=== PATIENT | female | born 1935 | race Caucasian/White ===

== ENCOUNTER 2017-02-08 16:13 | Inpatient (IN) | payer MEDICARE ==
[~2017-02-08] VITALS: Ht 152.4 cm; Wt 100.5 kg
[2017-02-08 18:10] LABS: BASO % 0.4 % (0.0-1.0); CALCIUM LEVEL 9.7 MG/DL (8.8-10.2); CREATININE FOR GFR 0.99 MG/DL (0.55-1.02); EOS # 0.2 K/mm3 (0.0-0.50); EOS % 2.4 % (0.0-3.0); LARGE UNSTAINED CELL # 0.2 K/mm3 (0.0-0.4); LARGE UNSTAINED CELL % 2.2 % (0.0-4.0); LYMPH # 1.6 K/mm3 (1.5-4.5); LYMPH % 16.1 % (24.0-44.0); MEAN CORPUSCULAR HEMOGLOBIN 22.4 pg (27.0-33.0); MEAN CORPUSCULAR HGB CONC 29.3 g/dl (32.0-36.5); MEAN CORPUSCULAR VOLUME 76.3 fl (80.0-96.0); MONO # 0.6 K/mm3 (0.0-0.8); MONO % 6.7 % (0.0-5.0); NEUTROPHILS # 6.5 K/mm3 (1.8-7.7); NEUTROPHILS % 72.2 % (36.0-66.0); PLATELET COUNT, AUTOMATED 323 k/mm3 (150-450); POTASSIUM SERUM 4.1 MEQ/L (3.5-5.1); RED CELL DISTRIBUTION WIDTH 17.2 % (11.5-14.5)
[2017-02-08 18:11] LABS: ADD MORPHOLOGY? YES
[2017-02-08] MEDS ORDERED: FUROSEMIDE 40 MG/4 ML VIAL (J1940) IV ONE (18:45)
--- NOTE | 2017-02-08 18:46 | REP ---
CHEST, TWO VIEWS: Two views of the chest are performed and compared to prior study of 05/08/2015. There is no acute infiltrate or pulmonary edema. There is cardiomegaly. There appears to be a hiatal hernia. There is tortuosity of the thoracic aorta. Mediastinal silhouette is unchanged. There are mild degenerative changes of the spine. IMPRESSION: Cardiomegaly. No evidence of acute pulmonary disease. Signed by Ronn Childs MD 02/08/2017 08:24 P
[2017-02-08 18:53] LABS: RETIC HEMOGLOBIN CONTENT CHr 26.9 PG (24-36); RETICULOCYTE ABSOLUTE ADVIA212 97 x10(9)/L (17-77)
[2017-02-08 18:55] LABS: ANISOCYTOSIS 1+
[2017-02-08 18:56] LABS: HYPOCHROMASIA 2+; MICROCYTOSIS 1+; OVALOCYTES 1+; POLYCHROMASIA 1+
[2017-02-08 18:58] LABS: PERCENT SATURATION 4.3 % (13.2-37.4)
[2017-02-08] MEDS ORDERED: TYLE325C PO (19:39)
[2017-02-08] MEDS ORDERED: FERR325T3 PO (19:39)
[2017-02-08] MEDS ORDERED: OMEP20CA3 PO (19:39)
[2017-02-08] MEDS ORDERED: VITA500C24 PO (19:39)
[2017-02-08] MEDS ORDERED: LASI40TA PO (19:39)
[2017-02-08] MEDS ORDERED: POTA20TA PO (19:39)
[2017-02-08] MEDS ORDERED: TRAM50TA2 PO (19:39)
[2017-02-08] MEDS ORDERED: VERA240C PO (19:46)
[2017-02-08] MEDS ORDERED: MONT10TA2 PO (19:46)
[2017-02-08] MEDS ORDERED: LOSA100T36 PO (19:46)
[2017-02-08] MEDS ORDERED: SIMV40TA2 PO (19:46)
[2017-02-08] MEDS ORDERED: PRED20TA PO (19:46)
[2017-02-08] MEDS ORDERED: SENN8.6T10 PO (19:46)
[2017-02-08] MEDS ORDERED: CALCTAB41 PO (19:51)
[2017-02-08] MEDS ORDERED: ALBU83IN INH (19:51)
[2017-02-08] MEDS ORDERED: SPIR1CAP INH (19:51)
[2017-02-08] MEDS ORDERED: SPIR25TA2 PO (19:51)
[2017-02-08] MEDS ORDERED: PAXI20TA3 PO (19:51)
[2017-02-08] MEDS ORDERED: DULE200A IN (19:51)
[2017-02-08] MEDS ORDERED: MULT1TAB18 PO (19:51)
[2017-02-08] MEDS ORDERED: XARE20TA PO (19:51)
[2017-02-08] MEDS ORDERED: PROA1AER INH (19:51)
[2017-02-08] MEDS ORDERED: ACETAMINOPHEN TAB 650MG DOSE (2X325MG) PO PRN (20:30)
[2017-02-08] MEDS ORDERED: VITMTA PO (20:32)
[2017-02-08] MEDS ORDERED: TYLE500T78 PO (20:32)
[2017-02-08] MEDS ORDERED: traMADol 50 MG TAB PO PRN (20:45)
[2017-02-08] MEDS ORDERED: ALBUTEROL SULFATE 2.5 MG/0.5 ML INH NEB SOLN INH PRN (20:45)
[2017-02-08 21:50] VITALS: BP 118/63
[2017-02-08] MEDS: OMEPRAZOLE 20 MG CAP PO SCH (21:57)
[2017-02-08] MEDS: VERAPAMIL 120 MG SR TAB PO SCH (21:58)
[2017-02-09] VITALS (11 sets, daily range): BP systolic 100–142; BP diastolic 51–91
[2017-02-09 05:40] LABS: BASO % 0.4 % (0.0-1.0); EOS # 0.2 K/mm3 (0.0-0.50); LARGE UNSTAINED CELL # 0.2 K/mm3 (0.0-0.4); LARGE UNSTAINED CELL % 2.6 % (0.0-4.0); LYMPH # 1.4 K/mm3 (1.5-4.5); LYMPH % 18.6 % (24.0-44.0); MEAN CORPUSCULAR HEMOGLOBIN 23.4 pg (27.0-33.0); MEAN CORPUSCULAR VOLUME 77.8 fl (80.0-96.0); MONO # 0.5 K/mm3 (0.0-0.8); MONO % 6.7 % (0.0-5.0); NEUTROPHILS # 4.5 K/mm3 (1.8-7.7); NEUTROPHILS % 68.6 % (36.0-66.0); PLATELET COUNT, AUTOMATED 266 k/mm3 (150-450); RED CELL DISTRIBUTION WIDTH 17.8 % (11.5-14.5); WHITE BLOOD COUNT 6.6 K/mm3 (4.0-10.0)
[2017-02-09 05:53] LABS: ADD MORPHOLOGY? YES
[2017-02-09 06:06] LABS: ANISOCYTOSIS 1+; HYPOCHROMASIA 3+; OVALOCYTES 1+
[2017-02-09 06:11] LABS: PERCENT SATURATION 5.6 % (13.2-37.4)
[2017-02-09 06:13] LABS: ALBUMIN 3.2 GM/DL (3.2-5.2); ALBUMIN/GLOBULIN RATIO 0.94 (1.00-1.93); ALKALINE PHOSPHATASE 50 U/L (45-117); ALT/SGPT 25 U/L (12-78); ANION GAP 7 MEQ/L (8-16); AST/SGOT 16 U/L (15-37); BILIRUBIN,TOTAL 1.3 MG/DL (0.2-1.0); BLOOD UREA NITROGEN 19 MG/DL (7-18); CALCIUM LEVEL 9.2 MG/DL (8.8-10.2); CARBON DIOXIDE LEVEL 27 MEQ/L (21-32); CHLORIDE LEVEL 104 MEQ/L (98-107); CREATININE FOR GFR 0.87 MG/DL (0.55-1.02); GLOMERULAR FILTRATION RATE > 60.0 (>32); GLUCOSE, FASTING 88 MG/DL (83-110); MAGNESIUM LEVEL 2.1 MG/DL (1.8-2.4); POTASSIUM SERUM 3.5 MEQ/L (3.5-5.1); SODIUM LEVEL 138 MEQ/L (136-145); TOTAL PROTEIN 6.6 GM/DL (6.4-8.2)
--- NOTE | 2017-02-09 06:45 | HPE ---
DATE OF ADMISSION: 02/08/2017 PRIMARY CARE PROVIDER: Dr. Melanie Baez. CHIEF COMPLAINT: Weakness, abnormal laboratories. HISTORY OF PRESENT ILLNESS: This is an 81-year-old female with a history of atrial fibrillation, currently in sinus rhythm, chronic obstructive pulmonary disease (COPD), obstructive sleep apnea on bilevel positive airway pressure (BiPAP), hyperlipidemia, multijoint arthritis, who has been on Xarelto at home, was apparently also talking Aleve for arthritic pain. She was called at home by her primary care physician to come to the emergency room for abnormal labs. Upon arrival, blood pressure was 143/82, pulse 102, respirations are 20, oxygen saturation was 98% on room air. Temperature was 97.3. Laboratory studies were done. White count was 9.0, hemoglobin 7.7, hematocrit 26.3, platelets were 323. Electrolytes were normal. BUN was 21, creatinine was 0.9. Iron was 21. Total iron-binding capacity was 488. Brain natriuretic peptide (BNP) was 834. Electrocardiogram (EKG) showed sinus rhythm with a first-degree AV block, rate of 75. A chest x-ray was done which showed cardiomegaly, no evidence of acute pulmonary disease. The patient received 40 mg of intravenous (IV) Lasix and a unit of packed cells while in the emergency room. Assessment was done. The patient states she had been feeling lightheaded. She had not had much appetite. She did not notice any bright red stool. Difficult to tell if she had black stool as she takes iron she says. No nausea or vomiting. Just decreased appetite, lightheadedness and generalized weakness. She had had shortness of breath but no chest pain or palpitations. The patient will be admitted. Her Xarelto will be stopped. ALLERGIES: PENICILLIN, SULFA ANTIBIOTICS. SOCIAL HISTORY: She is . She lives alone. She does drink alcohol. She does not smoke cigarettes. She does not use recreational drugs. PAST MEDICAL HISTORY: 1. Atrial fibrillation which is currently sinus rhythm with first-degree AV block. 2. COPD. 3. Obstructive sleep apnea on BiPAP. 4. Hypercholesterolemia. 5. Hypertension. 6. Gastroesophageal reflux disease (GERD). PAST SURGICAL HISTORY: 1. Cholecystectomy. 2. Appendectomy. 3. Right knee replacement. 4. Hysterectomy. 5. Vein stripping. FAMILY HISTORY: Noncontributory. REVIEW OF SYSTEMS: GENERAL: No complaint of headache, no blurred or double vision. No fever, chills. No tinnitus. No hoarseness. No difficulty swallowing. Has slight lightheadedness. No vertigo. BREASTS: No masses. CARDIOVASCULAR: No complaints of chest pain. Complained of shortness of breath. No palpitations. No edema. RESPIRATORY: Has history of COPD. No chronic cough. No sputum production. No hemoptysis, no orthopnea, no wheeze. Has obstructive sleep apnea and utilizes BiPAP. GASTROINTESTINAL (GI): Nausea. No vomiting or diarrhea. Denies hematochezia or melena. No complaints of abdominal pain. GENITOURINARY (): No hematuria, dysuria, frequency. MUSCULOSKELETAL: No joint redness or swelling. ENDOCRINE: No polyuria, polydipsia, polyphagia HEMATOLOGIC: Currently has anemia. History of iron deficiency. NEUROLOGIC: No history of paresthesias, paralysis or seizures. PSYCHOLOGICAL: No suicidal ideation. PHYSICAL EXAMINATION: GENERAL: An 81-year-old cooperate female in no acute distress. Height 60 inches, weight 101 kg. Body mass index (BMI) 43.5. The patient is alert and oriented times three. HEENT: Pupils are equal and react to light. Extraocular movement intact. Sclerae clear. Conjunctivae normal. No facial asymmetry. Pharynx, tongue, gums pink and moist. Tongue is midline. NECK: Supple without lymphadenopathy. No thyromegaly. No goiter. Carotids 2+ without bruits. CHEST: Clear to auscultation without wheeze or retraction. HEART: Regular. ABDOMEN: Benign. Bowel sounds are positive. GENITOURINARY/RECTAL: Not done. EXTREMITIES: Showed trace pedal edema. No cyanosis or clubbing. Full range of motion. Peripheral pulses equal and palpable bilaterally. SKIN: Warm and dry. IMPRESSION AND PLAN: 1. Admit for symptomatic anemia, transfusion. 2. Congestive heart failure (CHF), diurese. The patient will be placed on telemetry. Xarelto will be stopped. Serial complete blood counts (CBCs). 3. Iron deficiency. Continue oral iron. 4. Hypertension. Continue antihypertensives. 5. Chronic obstructive pulmonary disease. DuoNeb, as needed albuterol. Continue Singulair. 6. Hypercholesterolemia. Continue Zocor. 7. Obstructive sleep apnea. BiPAP as at home. 8. History of anxiety, depression. No suicidal ideation. Continue Paxil. 9. Continue tramadol as at home for arthritic pain. The patient will be admitted to Dr. Arguello.
[2017-02-09] MEDS: IPRATROPIUM 0.5MG/ALBUTEROL 2.5MG INH SOL UD 3ML (DUONEB)(J7620) NEB SCH ×3 (08:00→20:00)
[2017-02-09] MEDS: LOSARTAN 50 MG TAB PO SCH (08:35)
[2017-02-09] MEDS: PARoxetine 20 MG TAB PO SCH (08:35)
[2017-02-09] MEDS: OMEPRAZOLE 20 MG CAP PO SCH ×2 (08:35→20:40)
[2017-02-09] MEDS: MONTELUKAST 10 MG TAB PO SCH (08:35)
[2017-02-09] MEDS: SPIRONOLACTONE 25 MG TAB PO SCH (08:35)
[2017-02-09] MEDS: SIMVASTATIN 20 MG TAB PO SCH (08:35)
[2017-02-09] MEDS: FUROSEMIDE 40 MG TAB PO SCH ×2 (08:35→11:59)
[2017-02-09] MEDS: TIOTROPIUM INHALER/CAPSULE (SPIRIVA) INH SCH (08:47)
[2017-02-09] MEDS ORDERED: ASCORBIC ACID 500 MG TAB PO SCH (09:00)
[2017-02-09] MEDS ORDERED: FERROUS SULFATE 325MG TAB PO SCH (09:00)
[2017-02-09] MEDS ORDERED: VERAPAMIL 120 MG SR TAB PO SCH (09:00)
--- NOTE | 2017-02-09 09:26 | ECGEPIP ---
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
[2017-02-09] MEDS ORDERED: FUROSEMIDE 40 MG/4 ML VIAL (J1940) IV ONE (12:00)
--- NOTE | 2017-02-09 15:10 | IPNPDOC ---
Subjective Date Seen The patient was seen on 02/09/17. Subjective Chief Complaint/HPI The patient is a 81-year-old female admitted with a reason for visit of Chf; Symptomatic Anemia. Events since last encounter Feeling better than last night, still weak and tired, hasn't been out of bed much, no pain, no chest pain Constitutional: Denies: Chills, Fever Skin: Denies: Rash Pulmonary: Denies: Dyspnea, Cough Cardiovascular: Denies: Chest Pain, Palpitations Gastrointestinal: Denies: Nausea, Vomiting, Abdominal Pain Objective Physical Examination General Exam: Positive: Alert, Cooperative, No Acute Distress Eye Exam: Positive: Conjunctiva & lids normal, Negative: Sclera icteric ENT Exam: Positive: Mucous membr. moist/pink Neck Exam: Negative: Lymphadenopathy Chest Exam: Positive: Normal air movement, Negative: Rales, Rhonchi, Wheezing Heart Exam: Positive: Rate Normal, Regular Rhythm, Normal S1, Normal S2 Telemetry: Positive: No significant arrhythmia Abdomen Exam: Positive: Normal bowel sounds, Soft, Negative: Tenderness Assessment /Plan Problems (1) Symptomatic anemia Status: Acute Problem Specific Plan: Repeat Labs, Repeat Tests Problem Text: No obvious blood loss, although microcytic check ua recheck stool. Heme negative in ED Transfuse again today- perhaps an element of dilutional anemia check peripheral smear (2) CHF (congestive heart failure) Status: Acute Problem Text: 2D echo ordered additional lasix given seems improved from last night (3) PAF (paroxysmal atrial fibrillation) Status: Chronic Problem Text: in sinus s/p cardioversion in December 2016 of anti-coagulation in setting of anemia (4) JENNIFER treated with BiPAP Status: Chronic (5) COPD (chronic obstructive pulmonary disease) Status: Chronic Response to Treatment: Stable (6) HTN (hypertension) Status: Chronic Plan/VTE VTE Prophylaxis Ordered?: Yes VS, I&O, 24H, Fishbone Vital Signs/I&O Vital Signs Date Time Temp Pulse Resp B/P (MAP) Pulse Ox O2 Delivery O2 Flow Rate FiO2 02/09/17 14:10 98.4 79 20 100/59 (73) 96 Room Air I&O- Last 24 Hours up to 6 AM 02/09/17 05:59 Intake Total 300 ml Output Total 1300 ml Balance -1000 ml Laboratory Data 24H LABS Laboratory Tests 2 02/08/17 17:10: White Blood Count 9.0, Red Blood Count 3.45L, Hemoglobin 7.7L, Hematocrit 26.3L , Mean Corpuscular Volume 76.3L, Mean Corpuscular Hemoglobin 22.4L, Mean Corpuscular Hemoglobin Concent 29.3L, Red Cell Distribution Width 17.2H, Platelet Count 323, Neutrophils (%) (Auto) 72.2H, Lymphocytes (%) (Auto) 16.1L, Monocytes (%) (Auto) 6.7H, Eosinophils (%) (Auto) 2.4, Basophils (%) (Auto) 0.4 , Neutrophils # (Auto) 6.5, Lymphocytes # (Auto) 1.6, Monocytes # (Auto) 0.6, Eosinophils # (Auto) 0.2, Basophils # (Auto) 0.0, Large Unclassified Cells % 2.2 , Large Unclassified Cells # 0.2, Platelet Estimate NORMAL, Polychromasia 1+, Hypochromasia 2+, Anisocytosis 1+, Microcytosis 1+, Ovalocytes 1+, Absolute Reticulocyte Count 97H, Percent Reticulocyte Count 2.80H, Reticulocyte Hgb Content (CHr) 26.9, Anion Gap 7L, Glomerular Filtration Rate 57.0, Blood Urea Nitrogen 21H, Creatinine 0.99, Sodium Level 138, Potassium Level 4.1, Chloride Level 104, Carbon Dioxide Level 27, Calcium Level 9.7, Total Creatine Kinase 50 , Iron Level 21L, Total Iron Binding Capacity 488H, Transferrin % Saturation 4.3L, Ferritin 10, Creatine Kinase MB 1.0, Creatine Kinase MB Relative Index 2.00, Troponin I 0.03, B-Type Natriuretic Peptide 834H 02/09/17 05:18: White Blood Count 6.6, Red Blood Count 3.34L, Hemoglobin 7.8L, Hematocrit 26.0L , Mean Corpuscular Volume 77.8L, Mean Corpuscular Hemoglobin 23.4L, Mean Corpuscular Hemoglobin Concent 30.0L, Red Cell Distribution Width 17.8H, Platelet Count 266, Neutrophils (%) (Auto) 68.6H, Lymphocytes (%) (Auto) 18.6L, Monocytes (%) (Auto) 6.7H, Eosinophils (%) (Auto) 3.0, Basophils (%) (Auto) 0.4 , Neutrophils # (Auto) 4.5, Lymphocytes # (Auto) 1.4L, Monocytes # (Auto) 0.5, Eosinophils # (Auto) 0.2, Basophils # (Auto) 0.0, Large Unclassified Cells % 2.6 , Large Unclassified Cells # 0.2, Platelet Estimate NORMAL, Hypochromasia 3+, Anisocytosis 1+, Ovalocytes 1+, Anion Gap 7L, Glomerular Filtration Rate > 60.0 , Blood Urea Nitrogen 19H, Creatinine 0.87, Sodium Level 138, Potassium Level 3.5, Chloride Level 104, Carbon Dioxide Level 27, Calcium Level 9.2, Total Creatine Kinase 50, Iron Level 23L, Total Iron Binding Capacity 408, Transferrin % Saturation 5.6L, Ferritin 11, Creatine Kinase MB 1.0, Creatine Kinase MB Relative Index 2.00, Troponin I 0.03, Aspartate Amino Transf (AST/SGOT ) 16, Alanine Aminotransferase (ALT/SGPT) 25, Alkaline Phosphatase 50, Total Bilirubin 1.3H, Total Protein 6.6, Albumin 3.2, Magnesium Level 2.1, Albumin/ Globulin Ratio 0.94L 02/09/17 12:17: Total Creatine Kinase 59, Creatine Kinase MB 1.0, Creatine Kinase MB Relative Index 1.69, Troponin I 0.02# CBC/BMP Laboratory Tests 02/08/17 17:10 Red Blood Count 3.45 L, Mean Corpuscular Volume 76.3 L, Mean Corpuscular Hemoglobin 22.4 L, Mean Corpuscular Hemoglobin Concent 29.3 L, Red Cell Distribution Width 17.2 H, Neutrophils (%) (Auto) 72.2 H, Lymphocytes (%) (Auto ) 16.1 L, Monocytes (%) (Auto) 6.7 H, Eosinophils (%) (Auto) 2.4, Basophils (%) (Auto) 0.4, Neutrophils # (Auto) 6.5, Lymphocytes # (Auto) 1.6, Monocytes # ( Auto) 0.6, Eosinophils # (Auto) 0.2, Basophils # (Auto) 0.0, Calcium Level 9.7, Total Creatine Kinase 50 02/09/17 05:18 Red Blood Count 3.34 L, Mean Corpuscular Volume 77.8 L, Mean Corpuscular Hemoglobin 23.4 L, Mean Corpuscular Hemoglobin Concent 30.0 L, Red Cell Distribution Width 17.8 H, Neutrophils (%) (Auto) 68.6 H, Lymphocytes (%) (Auto ) 18.6 L, Monocytes (%) (Auto) 6.7 H, Eosinophils (%) (Auto) 3.0, Basophils (%) (Auto) 0.4, Neutrophils # (Auto) 4.5, Lymphocytes # (Auto) 1.4 L, Monocytes # ( Auto) 0.5, Eosinophils # (Auto) 0.2, Basophils # (Auto) 0.0, Calcium Level 9.2, Total Creatine Kinase 50, Aspartate Amino Transf (AST/SGOT) 16, Alanine Aminotransferase (ALT/SGPT) 25, Alkaline Phosphatase 50, Total Bilirubin 1.3 H, Total Protein 6.6, Albumin 3.2 MAKENNA ROMANO MD Feb 09, 2017 15:10
[2017-02-09 20:09] LABS: BASO % 0.3 % (0.0-1.0); EOS # 0.2 K/mm3 (0.0-0.50); EOS % 2.7 % (0.0-3.0); LARGE UNSTAINED CELL # 0.2 K/mm3 (0.0-0.4); LARGE UNSTAINED CELL % 2.4 % (0.0-4.0); LYMPH # 1.6 K/mm3 (1.5-4.5); LYMPH % 20.6 % (24.0-44.0); MEAN CORPUSCULAR HEMOGLOBIN 24.3 pg (27.0-33.0); MEAN CORPUSCULAR HGB CONC 31.1 g/dl (32.0-36.5); MONO # 0.5 K/mm3 (0.0-0.8); MONO % 7.6 % (0.0-5.0); NEUTROPHILS # 4.7 K/mm3 (1.8-7.7); NEUTROPHILS % 66.4 % (36.0-66.0); PLATELET COUNT, AUTOMATED 268 k/mm3 (150-450); RED CELL DISTRIBUTION WIDTH 17.3 % (11.5-14.5); WHITE BLOOD COUNT 7.1 K/mm3 (4.0-10.0)
[2017-02-09] MEDS: VERAPAMIL 120 MG SR TAB PO SCH (20:40)
[2017-02-09 21:34] LABS: REASON FOR REVIEW COMPREHENSIVE REVIEW
[2017-02-09] MEDS ORDERED: SLF 3 ML SYR IV PRN (23:45)
[2017-02-10 04:17] VITALS: BP 122/58
[2017-02-10] MEDS: SLF 3 ML SYR IV SCH ×2 (04:20→14:00)
[2017-02-10 05:24] LABS: BASO % 0.4 % (0.0-1.0); EOS # 0.3 K/mm3 (0.0-0.50); EOS % 3.9 % (0.0-3.0); LARGE UNSTAINED CELL # 0.2 K/mm3 (0.0-0.4); LARGE UNSTAINED CELL % 3.2 % (0.0-4.0); LYMPH # 1.6 K/mm3 (1.5-4.5); MEAN CORPUSCULAR HEMOGLOBIN 23.9 pg (27.0-33.0); MEAN CORPUSCULAR HGB CONC 30.3 g/dl (32.0-36.5); MEAN CORPUSCULAR VOLUME 78.9 fl (80.0-96.0); MONO # 0.5 K/mm3 (0.0-0.8); NEUTROPHILS # 4.8 K/mm3 (1.8-7.7); NEUTROPHILS % 64.6 % (36.0-66.0); PLATELET COUNT, AUTOMATED 256 k/mm3 (150-450); RED CELL DISTRIBUTION WIDTH 17.5 % (11.5-14.5); WHITE BLOOD COUNT 7.4 K/mm3 (4.0-10.0)
[2017-02-10 08:00] VITALS: BP 150/95
[2017-02-10] MEDS: MONTELUKAST 10 MG TAB PO SCH (09:17)
[2017-02-10] MEDS: FUROSEMIDE 40 MG TAB PO SCH ×2 (09:17→17:06)
[2017-02-10] MEDS: OMEPRAZOLE 20 MG CAP PO SCH (09:17)
[2017-02-10] MEDS: SPIRONOLACTONE 25 MG TAB PO SCH (09:17)
[2017-02-10 09:18] VITALS: BP 122/58
[2017-02-10] MEDS: LOSARTAN 50 MG TAB PO SCH (09:18)
[2017-02-10] MEDS: PARoxetine 20 MG TAB PO SCH (09:18)
[2017-02-10] MEDS: SIMVASTATIN 20 MG TAB PO SCH (09:18)
[2017-02-10] MEDS: IPRATROPIUM 0.5MG/ALBUTEROL 2.5MG INH SOL UD 3ML (DUONEB)(J7620) NEB SCH ×2 (10:03→13:26)
[2017-02-10] MEDS: TIOTROPIUM INHALER/CAPSULE (SPIRIVA) INH SCH (10:03)
[2017-02-10 12:00] VITALS: BP 126/83
[2017-02-10 16:00] VITALS: BP 127/63
--- NOTE | 2017-02-11 21:02 | DSES ---
DATE OF ADMISSION: 02/08/2017 DATE OF DISCHARGE: 02/10/2017 No specialists were involved in her care. No complications during her stay. No procedures were performed during her stay. DISCHARGE DIAGNOSES: 1. Symptomatic anemia. 2. Decompensated congestive heart failure with suspected diastolic dysfunction. 3. Atrial flutter. 4. Paroxysmal obstructive sleep apnea treated with bi-level positive airway pressure (BiPAP). 5. Chronic obstructive pulmonary disease. 6. Hypertension. SUMMARY OF HOSPITALIZATION: This is an 81-year-old who presented to the emergency department with abnormal labs noted to be anemic, was seen and evaluated by the hospitalist team, was thought to be mildly decompensated congestive heart failure and noted to have symptomatic anemia. Informed consent was obtained for blood transfusion. She was transfused a total of two units of blood during her stay. She did receive IV Lasix and diuresed around 3 1/2 to 4 pounds during her stay. Was seen and evaluated by physical therapy and felt safe for home discharge. Rectal exam during the stay was heme negative, only one stool sample was obtained during the stay. 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 She was noted to be minimally iron deficiency and had already been started as an outpatient on iron and vitamin C supplement appropriately. Case was discussed with Dr. Baez initially her Xarelto had been held as an outpatient for concern of the possibility of GI bleed, but it was elected to restart it as there is no direct evidence of GI bleed and it is unclear what her iron deficiency is from. On the day of discharge the patient is feeling more energetic. She has passed physical therapy. She has no complaints of pain, chest pain, shortness of breath. Temperature 98.3, pulse 90, respiratory rate 19, blood pressure 127/63, 95% on room air. She is awake, appropriately interactive, pleasantly conversant, breathing symmetric and rested. She, although was previously in atrial flutter with a controlled rate during her stay has converted to sinus rhythm at the time of discharge. Abdomen is soft, doughy, non-tender. White cell count 7.4, hemoglobin 9.2, platelets of 256. Creatinine 0.878m iron is 23, TIBC is 408, ferritin is 11, trops during her stay were negative times two. DISCHARGE INSTRUCTIONS: Include the following- 1. Follow up with Dr. Baez as scheduled on Wednesday of next week. 2. I have recommended she check her weight daily. I have not placed her on a fluid restriction. MEDICATIONS AT THE TIME OF DISCHARGE: - Tylenol - albuterol as needed in the form of MDI and nebulizer - vitamin c 500 mg every 2 days - vitamin D and calcium supplement - Dulera inhaled daily - ferrous sulfate 305 mg every 2 days - Lasix 40 mg twice daily - Losartan 15 mg by mouth daily - Montelukast 10 mg by mouth daily - multivitamin tablet daily - Omeprazole 20 mg twice daily - Pyroxine 20 mg daily - KCL 20 mEq twice daily - Xarelto 20 mg daily - Simvastatin 20 mg by mouth daily - spironolactone 25 mg by mouth daily - Spiriva inhaled daily - Tramadol 50 mg by mouth twice daily - verapamil CD 240 mg by mouth daily This case was discussed with the patient's son at bed side, and with the patient's daughter by phone as well as with Dr. Baez prior to discharge. This discharge took approximately 50 minutes.
== END 2017-02-10 18:45 | disposition home or self-care (01) | DRG 811 ==
LOC: M ED 17:59 → M ED INP 20:29 → M PCU 21:41
PROVIDERS: ADMIT Internal Medicine; ATTEND Internal Medicine
PROC: 30233N1 Transfusion of Nonautologous Red Blood Cells into Peripheral Vein, Percutaneous Approach (ICD-10-PCS; principal; 2017-02-08)
DX: D64.9 Anemia, unspecified (principal); I50.33 Acute on chronic diastolic (congestive) heart failure; I48.91 Unspecified atrial fibrillation; J44.9 Chronic obstructive pulmonary disease, unspecified; I11.0 Hypertensive heart disease with heart failure; Z99.89 Dependence on other enabling machines and devices; G47.33 Obstructive sleep apnea (adult) (pediatric); Z79.01 Long term (current) use of anticoagulants; Z79.899 Other long term (current) drug therapy; Z79.891 Long term (current) use of opiate analgesic; Z88.0 Allergy status to penicillin; Z88.2 Allergy status to sulfonamides; I44.0 Atrioventricular block, first degree; Z90.49 Acquired absence of other specified parts of digestive tract; Z90.710 Acquired absence of both cervix and uterus; Z96.651 Presence of right artificial knee joint; E78.00 Pure hypercholesterolemia, unspecified; M19.90 Unspecified osteoarthritis, unspecified site; F32.9 Major depressive disorder, single episode, unspecified; F41.9 Anxiety disorder, unspecified

== ENCOUNTER 2017-04-21 09:02 | Outpatient (CLI) | payer MEDICARE ==
[~2017-04-21] VITALS: Ht 152.4 cm; Wt 100.7 kg
[~2017-04-21 09:02] MED LIST: ACETYLCHOLINE OPHTH SOLN 1% 2ML (MIOCHOL-E) As Ordered ONE; ALBU83IN INH; BALANCED SALT IRRIGATION SOLUTION 500ML BAG (FOR OR EYE MACHINE) As Ordered ONE; CALCTAB41 PO; CEFUROXIME 1MG/0.1ML INTRACAMERAL INJ As Ordered ONE; DULE200A IN; FERR325T3 PO; HEALON DUET (HEALON 10MG/ML 0.55ML & HEALON ENDOCOAT 30MG/ML 0.85ML) As Ordered ONE; LASI40TA PO; LIDOCAINE 1% SDV 5 ML VIAL As Ordered ONE; LOSA100T36 PO; MONT10TA2 PO; MULT1TAB18 PO; NORV5TAB PO; OMEP20CA3 PO; PAXI20TA29 PO; POTA20TA PO; POVIDONE-IODINE 5% OPHTH PREP SOL 30ML As Ordered ONE; PRED20TA PO; PROAAER10 INH; SENN1TAB10 PO; SIMV40TA2 PO; SPIR1CAP INH; SPIR25TA2 PO; TRAM50TA2 PO; TYLE325C PO; TYLE500T78 PO; VERA240C PO; VITA500C24 PO; VITMTA PO; XARE20TA PO
[2017-04-21] MEDS ORDERED: NS 1,000 ML IV ONE (09:15)
[2017-04-21] MEDS ORDERED: LIDOCAINE 2% INJ 100 MG/5 ML SDV (FOR ANES.) As Ordered ONE (10:02)
[2017-04-21] MEDS ORDERED: PROPOFOL 500 MG/50 ML VIAL As Ordered ONE (10:02)
--- NOTE | 2017-04-21 10:17 | ROOR ---
Patient Name: Garland Prakash Procedure Date: 04/21/2017 9:56 AM Date of : 1935 Age: 81 Room: [facility] Gender: Female Note Status: Finalized Procedure: Upper GI endoscopy + Small bowel bx. Indications: Iron deficiency anemia Providers: Michael Ornelas MD Referring MD: Melanie BRIONES MD Requesting Provider: Medicines: Monitored Anesthesia Care Complications: No immediate complications. Procedure: Pre-Anesthesia Assessment: - The heart rate, respiratory rate, oxygen saturations, blood pressure, adequacy of pulmonary ventilation, and response to care were monitored throughout the procedure. The Endoscope was introduced through the mouth, and advanced to the second part of duodenum. The upper GI endoscopy was accomplished without difficulty. The patient tolerated the procedure well. Findings: The Z-line was regular and was found 30 cm from the incisors. A large hiatal hernia was present. No other significant abnormalities were identified in a careful examination of the stomach. The exam of the duodenum was otherwise normal. Biopsies for histology were taken with a cold forceps in the second portion of the duodenum for evaluation of celiac disease. The exam was otherwise without abnormality. Impression: - Z-line regular, 30 cm from the incisors. - Large hiatal hernia. - The examination was otherwise normal. - Biopsies were taken with a cold forceps for evaluation of celiac disease. - The examination was otherwise normal. Recommendation: - Patient has a contact number available for emergencies. The signs and symptoms of potential delayed complications were discussed with the patient. Return to normal activities tomorrow. Written discharge instructions were provided to the patient. - High fiber diet. - Discharge patient to home. - Continue present medications. - Await pathology results. - Telephone GI clinic for pathology results in 1 week. - Return to referring physician. - The findings and recommendations were discussed with the patient's family. Michael Ornelas MD Michael Ornelas MD 04/21/2017 10:16:55 AM This report has been signed electronically. Number of Addenda: 0 Note Initiated On: 04/21/2017 9:56 AM Estimated Blood Loss: Estimated blood loss: none.
--- NOTE | 2017-04-21 10:41 | ROOR ---
Patient Name: Garland Prakash Procedure Date: 04/21/2017 9:57 AM Date of : 1935 Age: 81 Room: [facility] Gender: Female Note Status: Finalized Procedure: Total Colonoscopy to Cecum + Cold Snare Polypectomy + Hemoclips Indications: Iron deficiency anemia Providers: Michael Ornelas MD Referring MD: Melanie BRIONES MD Requesting Provider: Medicines: Monitored Anesthesia Care Complications: No immediate complications. Procedure: Pre-Anesthesia Assessment: - The heart rate, respiratory rate, oxygen saturations, blood pressure, adequacy of pulmonary ventilation, and response to care were monitored throughout the procedure. The Colonoscope was introduced through the anus and advanced to the cecum, identified by appendiceal orifice and ileocecal valve. The colonoscopy was performed without difficulty. The patient tolerated the procedure well. The quality of the bowel preparation was excellent. Findings: The perianal and digital rectal examinations were normal. Non-bleeding internal hemorrhoids were found during retroflexion. The hemorrhoids were small and Grade I (internal hemorrhoids that do not prolapse). Scattered small-mouthed diverticula were found in the recto-sigmoid colon, sigmoid colon and descending colon. A medium polyp was found in the mid ascending colon. The polyp was sessile. The polyp was removed with a cold snare. Resection and retrieval were complete. To prevent bleeding after the polypectomy, two hemostatic clips were successfully placed (MR conditional). There was no bleeding at the end of the procedure. The exam was otherwise without abnormality on direct and retroflexion views. Impression: - Non-bleeding internal hemorrhoids. - Diverticulosis in the recto-sigmoid colon, in the sigmoid colon and in the descending colon. - One medium polyp in the mid ascending colon, removed with a cold snare. Resected and retrieved. Clips (MR conditional) were placed. - The examination was otherwise normal on direct and retroflexion views. - The exam was otherwise normal to the cecum. Recommendation: - Patient has a contact number available for emergencies. The signs and symptoms of potential delayed complications were discussed with the patient. Return to normal activities tomorrow. Written discharge instructions were provided to the patient. - High fiber diet. - Discharge patient to home. - Continue present medications. - Await pathology results. - Telephone GI clinic for pathology results in 1 week. - Repeat colonoscopy for symptoms only. - Return to referring physician. - The findings and recommendations were discussed with the patient's family. Michael Ornelas MD Michael Ornelas MD 04/21/2017 10:41:03 AM This report has been signed electronically. Number of Addenda: 0 Note Initiated On: 04/21/2017 9:57 AM Estimated Blood Loss: Estimated blood loss: none.
[2017-04-21 11:00] VITALS: BP 131/72
== END 2017-04-21 11:20 | disposition home or self-care (01) ==
LOC: M OPP 09:02
PROVIDERS: ATTEND Internal Medicine Gastroenterology
DX: D50.9 Iron deficiency anemia, unspecified (principal); D12.2 Benign neoplasm of ascending colon; K64.0 First degree hemorrhoids; K57.30 Diverticulosis of large intestine without perforation or abscess without bleeding; K44.9 Diaphragmatic hernia without obstruction or gangrene; K22.70 Barrett's esophagus without dysplasia; G47.30 Sleep apnea, unspecified; J44.9 Chronic obstructive pulmonary disease, unspecified; I10 Essential (primary) hypertension; E78.00 Pure hypercholesterolemia, unspecified; K21.9 Gastro-esophageal reflux disease without esophagitis; Z79.82 Long term (current) use of aspirin; Z79.899 Other long term (current) drug therapy; Z88.0 Allergy status to penicillin; Z88.2 Allergy status to sulfonamides

== ENCOUNTER → 2017-05-11 | Outpatient (CLI) | payer MEDICARE ==
[~2017-05-11] MED LIST changes: -ACETYLCHOLINE OPHTH SOLN 1% 2ML (MIOCHOL-E) As Ordered ONE; -BALANCED SALT IRRIGATION SOLUTION 500ML BAG (FOR OR EYE MACHINE) As Ordered ONE; -CEFUROXIME 1MG/0.1ML INTRACAMERAL INJ As Ordered ONE; -HEALON DUET (HEALON 10MG/ML 0.55ML & HEALON ENDOCOAT 30MG/ML 0.85ML) As Ordered ONE; -LIDOCAINE 1% SDV 5 ML VIAL As Ordered ONE; -POVIDONE-IODINE 5% OPHTH PREP SOL 30ML As Ordered ONE
[2017-05-11 18:29] LABS: CALCIUM LEVEL 9.4 MG/DL (8.8-10.2); CREATININE FOR GFR 1.04 MG/DL (0.55-1.02); GLOMERULAR FILTRATION RATE 53.7 (>32)
== END ==
LOC: M SMT 14:12
PROVIDERS: ATTEND Internal Medicine Cardiovascular Disease
DX: I10 Essential (primary) hypertension (principal); R06.02 Shortness of breath; R60.9 Edema, unspecified

== ENCOUNTER 2018-01-27 11:04 | Emergency (ER) | payer MEDICARE ==
[2018-01-27] MEDS: LIDOCAINE 2% MDV 20 ML VIAL SC (12:25)
[2018-01-27] MEDS: TETANUS/DIPHTHERIA TOX ADSORB ADULT 0.5ML SYR/VIAL (90714) IM (13:00)
== END 2018-01-27 13:06 | disposition home or self-care (01) ==
LOC: M ED 11:04
DX: S61.213A Laceration without foreign body of left middle finger without damage to nail, initial encounter (principal); W26.0XXA Contact with knife, initial encounter; Y92.009 Unspecified place in unspecified non-institutional (private) residence as the place of occurrence of the external cause; J45.909 Unspecified asthma, uncomplicated; I25.10 Atherosclerotic heart disease of native coronary artery without angina pectoris; I11.0 Hypertensive heart disease with heart failure; E78.70 Disorder of bile acid and cholesterol metabolism, unspecified; K21.9 Gastro-esophageal reflux disease without esophagitis; Z79.01 Long term (current) use of anticoagulants; Z88.0 Allergy status to penicillin; Z88.1 Allergy status to other antibiotic agents; Z88.2 Allergy status to sulfonamides; Z79.899 Other long term (current) drug therapy
CPT/HCPCS: 90714

== ENCOUNTER → 2018-02-02 | Outpatient (REF) | payer MEDICARE ==
[2018-02-03 12:24] LABS: FERRITIN 29 NG/ML (8-252); IRON (FE) 96 UG/DL (50-170); PERCENT SATURATION 21.4 % (13.2-45.0); TOTAL IRON BINDING CAPACITY 449 UG/DL (250-450)
== END ==
LOC: M LAB REF 11:45
DX: D50.9 Iron deficiency anemia, unspecified (principal)
CPT/HCPCS: 83550

== ENCOUNTER → 2018-04-05 | Outpatient (REF) | payer MEDICARE ==
[2018-04-05 19:03] LABS: VITAMIN B12 LEVEL 556 PG/ML (247-911)
== END ==
LOC: M LAB REF 17:18
DX: D50.9 Iron deficiency anemia, unspecified (principal)
CPT/HCPCS: 82607

== ENCOUNTER → 2018-04-06 | Outpatient (REF) | payer MEDICARE ==
[2018-04-06 19:07] LABS: FERRITIN 16 NG/ML (8-252); IRON (FE) 25 UG/DL (50-170); PERCENT SATURATION 4.9 % (13.2-45.0); TOTAL IRON BINDING CAPACITY 513 UG/DL (250-450)
== END ==
LOC: M LAB REF 17:02
DX: D50.9 Iron deficiency anemia, unspecified (principal)
CPT/HCPCS: 83550

== ENCOUNTER → 2018-04-14 | Day surgery (SDC) | payer MEDICARE ==
[~2018-04-14] MED LIST changes: -ALBU83IN INH; +BALANCED SALT IRRIGATION SOLUTION 500ML BAG (FOR OR EYE MACHINE) As Ordered; -CALCTAB41 PO; -DULE200A IN; +DUOVISC (0.50ML VISCOAT/0.55ML PROVISC) OPHTH KIT As Ordered; -FERR325T3 PO; -LASI40TA PO; +LIDOCAINE 0.75%/EPINEPHRINE 0.025% IN BSS 1ML SYR INTRACAMERAL (OR ONLY) As Ordered; -LOSA100T36 PO; -MONT10TA2 PO; -MULT1TAB18 PO; -NORV5TAB PO; +OFLOXACIN 0.3 % (OCUFLOX) OPTH SOL 5ML OD; -OMEP20CA3 PO; -PAXI20TA29 PO; +PHENYLEPHRINE 2.5% OPHTH SOL 2ML OD; -POTA20TA PO; +POVIDONE-IODINE 5% OPHTH PREP SOL 30ML As Ordered; -PRED20TA PO; -PROAAER10 INH; +PROPARACAINE 0.5% OPHTH SOL 15ML OD; -SENN1TAB10 PO; -SIMV40TA2 PO; -SPIR1CAP INH; -SPIR25TA2 PO; -TRAM50TA2 PO; +TROPICAMIDE 1% OPHTH SOLN 2ML OD; -TYLE325C PO; -TYLE500T78 PO; -VERA240C PO; -VITA500C24 PO; -VITMTA PO; -XARE20TA PO
== END | disposition home or self-care (01) ==
LOC: M SDC 11:30
DX: H25.11 Age-related nuclear cataract, right eye (principal); Z53.09 Procedure and treatment not carried out because of other contraindication

== ENCOUNTER → 2018-04-18 | Outpatient (REF) | payer MEDICARE ==
[2018-04-19 15:26] LABS: IMMEDIATE SPIN CROSSMATCH 1 2
== END ==
LOC: M LAB REF 13:41
DX: D64.9 Anemia, unspecified (principal)
CPT/HCPCS: 86900

== ENCOUNTER 2018-04-19 12:31 | Outpatient (CLI) | payer MEDICARE ==
[2018-04-19] MEDS: ACETAMINOPHEN 325 MG TAB PO (13:08)
[2018-04-19] MEDS: diphenhydrAMINE 25 MG CAP PO (13:08)
[2018-04-19] MEDS: FUROSEMIDE 20 MG/2 ML VIAL (J1940) IV (15:17)
== END 2018-04-19 17:40 | disposition home or self-care (01) ==
LOC: M INFU 12:31
DX: D64.9 Anemia, unspecified (principal); I50.9 Heart failure, unspecified; E78.00 Pure hypercholesterolemia, unspecified; I48.91 Unspecified atrial fibrillation; I11.0 Hypertensive heart disease with heart failure; I38 Endocarditis, valve unspecified; J45.909 Unspecified asthma, uncomplicated; J44.9 Chronic obstructive pulmonary disease, unspecified; G47.30 Sleep apnea, unspecified; K21.9 Gastro-esophageal reflux disease without esophagitis; K22.70 Barrett's esophagus without dysplasia; R32 Unspecified urinary incontinence; Z87.442 Personal history of urinary calculi; H25.9 Unspecified age-related cataract; H91.90 Unspecified hearing loss, unspecified ear; M19.90 Unspecified osteoarthritis, unspecified site; M54.9 Dorsalgia, unspecified; Z79.82 Long term (current) use of aspirin; Z79.899 Other long term (current) drug therapy; Z88.2 Allergy status to sulfonamides; Z88.0 Allergy status to penicillin
CPT/HCPCS: 36430

== ENCOUNTER → 2018-05-09 | Outpatient (REF) | payer MEDICARE ==
[2018-05-11 12:53] LABS: FERRITIN 26 NG/ML (8-252); IRON (FE) 183 UG/DL (50-170); TOTAL IRON BINDING CAPACITY 469 UG/DL (250-450)
[2018-05-12 08:06] LABS: HAPTOGLOBIN 84 mg/dL (34-200)
== END ==
LOC: M LAB REF 05-11 11:59
DX: D50.9 Iron deficiency anemia, unspecified (principal)
CPT/HCPCS: 83010

== ENCOUNTER 2019-03-30 11:18 | Day surgery (SDC) | payer MEDICARE ==
--- NOTE | 2019-03-22 17:46 | CR ---
DATE OF CONSULTATION: 03/22/2019 Date of scheduled surgical interventions 03/30/2019 and 04/13/2019 at [facility]. Dear Dr. Ornelas, Thank you for asking me to see ms Garland Prakash in consultation prior to her cataract extractions. As you know, Ms. Prakash is an 83-year-old female with past medical history of aortic stenosis, status post transcatheter aortic valve replacement (TAVR), atrial fibrillation (A-Fib) status post Watchman device and severe mitral regurgitation, status post mitral clip presenting for preop optimization. The patient reports that she saw Dr. Perea at [facility] on 03/17/2019 at which time she was found to be in good health and no change on her EKG. The patient denies any chest pain, palpitations, syncope or presyncope. The patient continues to have low back pain. She has had extensive evaluation and does continue to use a muscle relaxer, baclofen, at bedtime. The patient complains of fatigue. Admits she still has been unable to get her BiPAP equipment and is requesting we fax her script to her provider. The patient has history of asthma and feels it is well controlled. She has not been using her bronchodilators, but is compliant with her Dulera. The patient has history of gastroesophageal reflux disease (GERD). I have lowered her pantoprazole. She is just taking 40 mg a day. She had a history of AVERY last year while on anticoagulant therapy. The patient has history of depression and anxiety, feels she is well controlled on Paxil. The patient had recent skin CA removed from right forehead. Area was complicated by bleed when scab was removed. Most recent scab removal she had no complications and the area has healed well and she is pleased. The patient is active, caring for herself. Good support from family, but again denies any chest pain, palpitations, syncope or presyncope. REVIEW OF SYSTEMS: Otherwise negative. PAST MEDICAL HISTORY: 1. A Fib, status post Watchman device 10/01/2017. 2. Aortic stenosis, status post TAVR 10/12/2017. 3. Obstructive sleep apnea (JENNIFER) on BiPap. 4. Asthma. 5. Hypertensive heart disease. 6. Hyperlipidemia. 7. Peripheral vascular disease, status post vein stripping left lower extremity. 8. Allergic rhinitis. 9. Osteoarthritis, degenerative joint disease, advanced in the back 2017, also status post previous total right knee arthroplasty (TKA). 10. Status post cholecystectomy. 11. Status post hysterectomy. 12. Moderate to severe mitral regurgitation, status post mitral clip 11/30/2017. 13. GI bleed 2017 requiring blood transfusion, hospitalization with an essentially normal EGD, colonoscopy 04/21/2017 and multiple attempts at capsule endoscopy in 2018. 14. Bilateral cataracts. 15. Multiple skin malignancies. MEDICATIONS: - albuterol MDI as needed (p.r.n.) - albuterol nebulizer as needed - baby aspirin daily - baclofen 10 mg at bedtime - calcium plus D daily - Dulera 1 puff two times a day - Flonase as needed - furosemide 80 mg in the a.m. 40 in the p.m. - Klor-Con 20 mEq twice a day - lisinopril 2.5 mg daily - multivitamin daily - pantoprazole 40 mg twice a day - Paxil 20 mg daily - prednisone as needed - Singulair 10 mg daily - verapamil ER 240 mg daily - vitamin D 400 international units daily ALLERGIES: PENICILLIN, SULFA. FAMILY HISTORY: Father had three heart attacks and emphysema. Mother at age 91, had TIAs, fractured hip, but of old age. Brother diabetes and heart problems. Sister diabetes and heart problems. Another sister with colon cancer and heart problems. A sister with rheumatic fever that at 41. Another sister with diabetes. The patient is . Family is supportive. She lives alone. She is retired. She is a former smoker but quit in 1967. Denies alcohol use. PHYSICAL EXAMINATION She is an overweight female in no acute distress. Vital signs: Weight 216 with a BMI of 41 and O2 sat at rest 96%, blood pressure 120/72 with a heart rate of 75. HEENT: Head is normocephalic. Neck is supple. Pupils equal, reactive to light. Extraocular movements are intact. She does wear eyeglasses. Conjunctivae not injected. Sclerae anicteric. Well-healed incision right forehead. Tympanic membranes slightly scarred. Scant amount of cerumen. Tongue is midline. Posterior pharynx without inflammation. Neck is supple. No thyromegaly, JVD or carotid bruits. Lungs: Clear to auscultation, resonant to percussion. No expiratory wheezes. Cardiovascular: Soft systolic murmur, irregular. Abdomen: Well-healed right upper quadrant scar, protuberant, obese, soft, nontender. No hepatosplenomegaly. Extremities: At most trace pretibial edema. OA changes of the hands. Dermatologic: Extensive seborrheic keratosis. Neurologic: Alert and oriented. Cranial nerves II-XII intact. LABORATORY: The patient's blood work 02/21/2019 shows a normal CBC, med profile, liver panel except for a slightly elevated bilirubin, normal kidney function, magnesium, thyroid. The patient had recent blood draw with normal lipids. IMPRESSION: Ms. Garland Prakash is an 83-year-old female who has had a history of multiple cardiovascular interventions and cardiovascular risk factors include hypertension, age, family history. Her recent lipid status is excellent. The patient is felt to be optimized and at low risk for cardiovascular complications. Risks can be further minimized by the followin. Iron deficiency anemia (AVERY). Resolved after the patient had GI bleed 2016 with essentially normal EGD, colonoscopy except for a large hiatal hernia. She had a Watchman procedure. Her Plavix has been discontinued. She is maintained only on aspirin. She is off iron with a normal CBC. 2. Paroxysmal A Fib, rate controlled on verapamil. Will take this as usual prior to surgery. She has had Watchman device. She is only on aspirin at this point. She has just seen cardiology with approval of present care. 3. Hyperlipidemia, off statin. Lipids adequate. Defer to cardiology. 4. Hypertensive heart disease, good control. Hold diuretics a.m. of surgery. Take verapamil as usual the evening prior to surgery. 5. CRI III. She is on lisinopril. Will hold this a.m. of surgery. 6. Osteoarthritis, DJD, chronic pain. I have approved taking baclofen the evening prior to surgery, Tylenol as needed and topicals. 7. Aortic valve stenosis. Status post TAVR with good recovery. Follows with cardiology. 8. Mitral insufficiency, status post mitral clip with good results. Just saw cardiology, given good bill of health. 9. Asthma. She will take her Dulera a.m. of surgery as well as her albuterol if needed. 10. Allergies. Controlled. She will use Flonase a.m. of surgery. She will take Singulair at the usual time the evening prior to surgery. 11. Hiatal hernia, GERD. Take pantoprazole a.m. of surgery with sip of water. 12. Depression, anxiety. Take Paxil a.m. of surgery with sip of water. Thank you very much for this consultation. Please call with any questions or concerns. ADDENDUM: Electrocardiogram (EKG) is obtained from [facility] 03/17/2019 showing atrial fibrillation, mean rate of 77, left anterior fascicular block, anterior lateral infarct, age indeterminate, otherwise normal QTC, nonspecific ST-T wave changes, but no significant change from previous EKG 2018. edited: 03/22/2019 1717 zdm
[~2019-03-30] VITALS: Ht 149.9 cm; Wt 99.8 kg
[~2019-03-30 11:18] MED LIST changes: +ALBU83IN INH; +ASPI81TA26 PO; +BACL10TA8 PO; -BALANCED SALT IRRIGATION SOLUTION 500ML BAG (FOR OR EYE MACHINE) As Ordered; +BALANCED SALT IRRIGATION SOLUTION 500ML BAG (FOR OR EYE MACHINE) As Ordered ONE; +CALCTAB41 PO; +CLOP75TA2 PO; +DULE200A IN; -DUOVISC (0.50ML VISCOAT/0.55ML PROVISC) OPHTH KIT As Ordered; +DUOVISC (0.50ML VISCOAT/0.55ML PROVISC) OPHTH KIT As Ordered ONE; +FERR325T3 PO; +KLOR20TA42 PO; +LASI40TA9 PO; -LIDOCAINE 0.75%/EPINEPHRINE 0.025% IN BSS 1ML SYR INTRACAMERAL (OR ONLY) As Ordered; +LISI-1046 PO; +LOSA100T50 PO; +LOSA25TA14 PO; +MIDAZOLAM INJ 2 MG/2 ML VIAL (J2250) As Ordered ONE; +MONT10TA2 PO; +MULT1TAB18 PO; +NORV5TAB PO; -OFLOXACIN 0.3 % (OCUFLOX) OPTH SOL 5ML OD; +OFLOXACIN 0.3 % (OCUFLOX) OPTH SOL 5ML OD ONE; +OMEP20CA4 PO; +PANT40TA3 PO; +PAXI20TA29 PO; -PHENYLEPHRINE 2.5% OPHTH SOL 2ML OD; +PHENYLEPHRINE 2.5% OPHTH SOL 2ML OD ONE; -POVIDONE-IODINE 5% OPHTH PREP SOL 30ML As Ordered; +POVIDONE-IODINE 5% OPHTH PREP SOL 30ML As Ordered ONE; +PRED20TA PO; +PROAAER10 INH; -PROPARACAINE 0.5% OPHTH SOL 15ML OD; +PROPARACAINE 0.5% OPHTH SOL 15ML OD ONE; +SENN1TAB10 PO; +SIMV40TA2 PO; +SPIR-10 PO; +SPIR1CAP INH; +TRAM50TA2 PO; -TROPICAMIDE 1% OPHTH SOLN 2ML OD; +TROPICAMIDE 1% OPHTH SOLN 2ML OD ONE; +TYLE325C PO; +TYLE500T78 PO; +VERA240C PO; +VITA500C24 PO; +VITMTA PO; +XARE20TA PO; +fentaNYL 100 MCG/2 ML INJECTION (J3010) As Ordered ONE
[2019-03-30 14:00] VITALS: BP 133/77
--- NOTE | 2019-04-03 11:24 | RO ---
DATE OF PROCEDURE: 03/30/2019 PREOPERATIVE DIAGNOSIS: 1. Visually significant nuclear sclerotic cataract right eye. POSTOPERATIVE DIAGNOSIS: 1. Visually significant nuclear sclerotic cataract right eye. PROCEDURE: 1. Cataract extraction with use of phacoemulsification and placement of intraocular lens, AU00T0 26.5 D, right eye. SURGEON: Srini Ornelas DO REFRA[employer] PRODUCTS SUPERVISOR: None. ANESTHESIA: Local with monitored anesthesia care (MAC). COMPLICATIONS: None. POSTOPERATIVE CONDITION: Stable. INDICATIONS FOR SURGERY: 1. Blurred vision affecting patients activities of daily living. DESCRIPTION OF PROCEDURE: The patient was seen in the preoperative area and properly identified. The correct operative eye was identified and marked. The patient received topical anesthetic, antibiotics, and topical dilating drops. The patient was then transferred to the operating room. The correct side was re-identified, and a time-out was performed. The eye was prepped and draped in a sterile fashion. The eyelids were isolated with Tegaderm tape, and the lids were held open with an adjustable speculum. A 1.0 mm paracentesis incision was made. Intraocular preservative-free Shugarcaine was then injected into the anterior chamber. Viscoelastic was then injected into the anterior chamber through the paracentesis. Using a 2.4 mm sharp-tipped keratome, the anterior chamber was entered via a temporal clear cornea incision. A continuous curvilinear capsulorrhexis was created with Utrata forceps. Hydrodissection was performed with balanced salt solution (BSS) on a blunt cannula until the nucleus was able to rotate freely. The crystalline lens was phacoemulsified and aspirated. Irrigation/aspiration was used to remove the cortical material. Cohesive viscoelastic was placed into the capsular bag to deepen it. The implant was placed into the capsular bag and allowed to unfold. Placement was confirmed by visualizing the anterior capsulorrhexis. Irrigation/aspiration was used to remove the viscoelastic. The clear corneal incision was hydrated with BSS on a blunt cannula. The lens was well positioned. The incisions were then tested for leaks and found to be negative. The eye was then palpated for appropriate pressure and adjusted accordingly with BSS. The eyelid speculum was then carefully removed. A shield was placed over the eye. The patient tolerated the procedure well and was discharged to the recovery unit in a stable condition. BUNNY
== END 2019-03-30 14:05 | disposition home or self-care (01) ==
LOC: M SDC 11:18
PROVIDERS: ATTEND Ophthalmology
DX: H25.11 Age-related nuclear cataract, right eye (principal); K44.9 Diaphragmatic hernia without obstruction or gangrene; K21.9 Gastro-esophageal reflux disease without esophagitis; J45.909 Unspecified asthma, uncomplicated; Z79.899 Other long term (current) drug therapy; Z79.51 Long term (current) use of inhaled steroids; Z79.82 Long term (current) use of aspirin; G47.30 Sleep apnea, unspecified
CPT/HCPCS: 66984; J2250; J3010; V2632

== ENCOUNTER 2019-04-13 09:57 | Day surgery (SDC) | payer MEDICARE ==
[~2019-04-13] VITALS: Ht 149.9 cm; Wt 100.0 kg
[~2019-04-13 09:57] MED LIST changes: +LIDOCAINE 0.75%/EPINEPHRINE 0.025% IN BSS 1ML SYR INTRACAMERAL (OR ONLY) As Ordered ONE; -OFLOXACIN 0.3 % (OCUFLOX) OPTH SOL 5ML OD ONE; +OFLOXACIN 0.3 % (OCUFLOX) OPTH SOL 5ML OS ONE; +OMEP1CAP73 PO; -OMEP20CA4 PO; -PHENYLEPHRINE 2.5% OPHTH SOL 2ML OD ONE; +PHENYLEPHRINE 2.5% OPHTH SOL 2ML OS ONE; -PROPARACAINE 0.5% OPHTH SOL 15ML OD ONE; +PROPARACAINE 0.5% OPHTH SOL 15ML OS ONE; -SIMV40TA2 PO; +SIMV40TA20 PO; -TROPICAMIDE 1% OPHTH SOLN 2ML OD ONE; +TROPICAMIDE 1% OPHTH SOLN 2ML OS ONE; -fentaNYL 100 MCG/2 ML INJECTION (J3010) As Ordered ONE
[2019-04-13] MEDS ORDERED: ACET-683 PO (12:34)
[2019-04-13 14:13] VITALS: BP 138/81
--- NOTE | 2019-04-18 09:32 | RO ---
DATE OF PROCEDURE: 04/13/2019 PREOPERATIVE DIAGNOSIS: Visually significant nuclear sclerotic cataract left eye. POSTOPERATIVE DIAGNOSIS: Visually significant nuclear sclerotic cataract left eye. PROCEDURE: Cataract extraction with use of phacoemulsification and placement of intraocular lens, AU00T0, 23.5 D, left eye. SURGEON: Srini Ornelas DO SECONDARY SPANISH TEACHER: None. ANESTHESIA: Local with monitored anesthesia care (MAC). COMPLICATIONS: None. POSTOPERATIVE CONDITION: Stable. INDICATIONS FOR SURGERY: Blurred vision affecting patients activities of daily living. DESCRIPTION OF PROCEDURE: The patient was seen in the preoperative area and properly identified. The correct operative eye was identified and marked. The patient received topical anesthetic, antibiotics, and topical dilating drops. The patient was then transferred to the operating room. The correct side was re-identified, and a time-out was performed. The eye was prepped and draped in a sterile fashion. The eyelids were isolated with Tegaderm tape, and the lids were held open with an adjustable speculum. A 1.0 mm paracentesis incision was made. Intraocular preservative-free Shugarcaine was then injected into the anterior chamber. Viscoelastic was then injected into the anterior chamber through the paracentesis. Using a 2.4 mm sharp-tipped keratome, the anterior chamber was entered via a temporal clear cornea incision. A continuous curvilinear capsulorrhexis was created with Utrata forceps. Hydrodissection was performed with balanced salt solution (BSS) on a blunt cannula until the nucleus was able to rotate freely. The crystalline lens was phacoemulsified and aspirated. Irrigation/aspiration was used to remove the cortical material. Cohesive viscoelastic was placed into the capsular bag to deepen it. The implant was placed into the capsular bag and allowed to unfold. Placement was confirmed by visualizing the anterior capsulorrhexis. Irrigation/aspiration was used to remove the viscoelastic. The clear corneal incision was hydrated with BSS on a blunt cannula. The lens was well positioned. The incisions were then tested for leaks and found to be negative. The eye was then palpated for appropriate pressure and adjusted accordingly with BSS. The eyelid speculum was then carefully removed. A shield was placed over the eye. The patient tolerated the procedure well and was discharged to the recovery unit in a stable condition.
== END 2019-04-13 15:00 | disposition home or self-care (01) ==
LOC: M SDC 09:57
PROVIDERS: ATTEND Ophthalmology
DX: H25.12 Age-related nuclear cataract, left eye (principal); I48.91 Unspecified atrial fibrillation; I10 Essential (primary) hypertension; G47.30 Sleep apnea, unspecified; E78.5 Hyperlipidemia, unspecified; K44.9 Diaphragmatic hernia without obstruction or gangrene; K21.9 Gastro-esophageal reflux disease without esophagitis; D64.9 Anemia, unspecified; L40.8 Other psoriasis; Z79.899 Other long term (current) drug therapy; Z79.51 Long term (current) use of inhaled steroids; Z88.0 Allergy status to penicillin; Z88.2 Allergy status to sulfonamides
CPT/HCPCS: 66984; J2250; V2632

== ENCOUNTER → 2021-01-22 | Outpatient (REF) | payer MEDICARE ==
[~2021-01-22] MED LIST changes: +ACET-683 PO; -BALANCED SALT IRRIGATION SOLUTION 500ML BAG (FOR OR EYE MACHINE) As Ordered ONE; -DUOVISC (0.50ML VISCOAT/0.55ML PROVISC) OPHTH KIT As Ordered ONE; -LIDOCAINE 0.75%/EPINEPHRINE 0.025% IN BSS 1ML SYR INTRACAMERAL (OR ONLY) As Ordered ONE; -LISI-1046 PO; +LISI2.5T2 PO; -MIDAZOLAM INJ 2 MG/2 ML VIAL (J2250) As Ordered ONE; +MONT10TA10 PO; -MONT10TA2 PO; -OFLOXACIN 0.3 % (OCUFLOX) OPTH SOL 5ML OS ONE; +PANT40TA29 PO; -PANT40TA3 PO; -PHENYLEPHRINE 2.5% OPHTH SOL 2ML OS ONE; -POVIDONE-IODINE 5% OPHTH PREP SOL 30ML As Ordered ONE; -PROPARACAINE 0.5% OPHTH SOL 15ML OS ONE; -TROPICAMIDE 1% OPHTH SOLN 2ML OS ONE
== END ==
LOC: M LAB REF 12:18
PROVIDERS: ATTEND Internal Medicine
DX: E83.52 Hypercalcemia (principal)

== ENCOUNTER → 2021-02-12 | Outpatient (CLI) | payer MEDICARE ==
--- NOTE | 2021-02-12 13:54 | REP ---
INDICATION: LOW BACK PAIN. COMPARISON: Comparison radiographs of the lumbar spine are from January 15, 2017.. TECHNIQUE: Supine views of the abdomen. Two views presented. FINDINGS: There is a levoconvex lumbar scoliosis with did degenerative spondylosis changes as observed in January 15, 2017 prior study. There is degenerative sclerosis at the SI joints. There is minimal widening of the symphysis pubis. Bowel gas pattern is unremarkable. Psoas margins are symmetric. IMPRESSION: Levoconvex curve and moderate degenerative disc and facet change in the lumbar spine. Stable changes from January 15, 2017. Degenerative sclerosis in the SI joints. <Electronically signed by Adebayo Flowers > 02/12/21 [id number]
== END ==
LOC: M WUC 13:00
PROVIDERS: ATTEND Internal Medicine
DX: M54.5 Low back pain (principal)

== ENCOUNTER → 2021-03-19 | Outpatient (CLI) | payer MEDICARE ==
--- NOTE | 2021-03-20 09:29 | DEXAMM ---
INDICATION: DISORDER OF BONE/M85.80. COMPARISON: January 15, 2006. TECHNIQUE: Bone density was measured using dual-energy x-ray absorptionmetry (DEXA). FINDINGS: AP SPINE L1-L4 BMD 1.364 g/cm2 Young Adult T-Score 1.5 Age Matched Z-Score 3.5. LT FEMUR, TOTAL BMD 0.830 g/cm2 Young Adult T-Score -1.4 Age Matched Z-Score 1.0. LT NECK BMD 0.697 g/cm2 Young Adult T-Score -2.5 Age Matched Z-Score 0.1. RT FEMUR, TOTAL BMD 0.823 g/cm2 Young Adult T-Score -1.5 Age Matched Z-Score 1.0. RT NECK BMD 0.746 g/cm2 Young Adult T-Score -2.1 Age Matched Z-Score 0.4. IMPRESSION: There is normal bone density of the spine. There is low bone density of the left hip. There is low bone density of the right hip. The density of the spine has increased 4.6% since the initial exam on January 15, 2006. The density of the left hip has decreased 19.3% since initial exam on January 15, 2006. The density of the right hip has decreased 17.7% since the initial exam on January 15, 2006. FOLLOW-UP: Recommendation for the next bone density exam: 2 years. <Electronically signed by Adebayo Flowers > 03/20/21 0925
== END ==
LOC: M WHC 14:51
PROVIDERS: ATTEND Internal Medicine
DX: M85.851 Other specified disorders of bone density and structure, right thigh (principal); M85.852 Other specified disorders of bone density and structure, left thigh

== ENCOUNTER 2021-04-18 14:02 | Outpatient (CLI) | payer MEDICARE ==
[~2021-04-18] VITALS: Ht 149.9 cm; Wt 100.0 kg
[~2021-04-18 14:02] MED LIST changes: -LISI2.5T2 PO; +LISI2.5T9 PO; +ZOLEDRONIC ACID 5 MG in IV 1 EA IV ONE
[2021-04-18 14:42] VITALS: BP 133/78
[2021-04-18 15:00] VITALS: BP 125/61
== END 2021-04-18 15:30 | disposition home or self-care (01) ==
LOC: M INFU 14:02
PROVIDERS: ATTEND Internal Medicine
DX: M81.0 Age-related osteoporosis without current pathological fracture (principal); Z88.0 Allergy status to penicillin; Z88.2 Allergy status to sulfonamides
CPT/HCPCS: 96365; J3489